=== PATIENT | female | born 1940 | race Caucasian/White ===

== ENCOUNTER 2017-12-12 12:16 | Emergency (ER) | payer BC, MEDICARE ==
[2017-12-12] MEDS ORDERED: SODIUM CHLORIDE 0.9% 500 ML IV STA (13:05)
[2017-12-12] MEDS ORDERED: METOCLOPRAMIDE 5 MG/ML 2 ML VIAL IVP STA (13:05)
--- NOTE | 2017-12-12 13:09 | ED ---
General Adult HPI - General Chief complaint: Headache Stated complaint: Headache Time Seen by Provider: 12/12/17 12:54 Source: patient, family, RN notes reviewed Mode of arrival: ambulatory Limitations: no limitations - History of Present Illness Initial comments: Patient is a pleasant 77-year-old female presenting to the emergency department complaining of headache. Onset of symptoms was a week ago. Patient did have a fall 3 weeks ago and struck the left side of her head. Patient did not have significant symptoms at that time and was symptom-free for approximately 2 weeks prior to this onset of headache. Onset was gradual over several days. Discomfort is mostly on the top and left side of the head. Patient does have some mild left-sided neck discomfort posteriorly as well. Patient feels dizzy. Patient does have some photophobia and blurred vision and nausea. Patient does have a history of headaches however has not had bad headaches in several years. No confusion or isolated area of weakness. - Related Data Home Medications Medication Instructions Recorded Confirmed HYDROcodone/APAP 5-325MG [[place] 1 tab PO DAILY 01/05/16 12/12/17 5-325] Metoprolol Succinate [Toprol XL] 50 mg PO DAILY 01/05/16 12/12/17 Spironolactone [Aldactone] 25 mg PO DAILY 01/05/16 12/12/17 Warfarin [Coumadin] 1.25 mg PO THSA 12/12/17 12/12/17 Warfarin [Coumadin] 2.5 mg PO SUMOTUWEFR 12/12/17 12/12/17 Allergies Allergy/AdvReac Type Severity Reaction Status Date / Time No Known Allergies Allergy Verified 12/12/17 13:21 Review of Systems ROS Statement: Those systems with pertinent positive or pertinent negative responses have been documented in the HPI. ROS Other: All systems not noted in ROS Statement are negative. Constitutional: Denies: fever Eyes: Denies: eye pain ENT: Denies: ear pain Respiratory: Denies: cough Cardiovascular: Denies: chest pain Endocrine: Denies: fatigue Gastrointestinal: Reports: nausea Genitourinary: Denies: dysuria Musculoskeletal: Denies: back pain Skin: Denies: rash Neurological: Reports: headache, abnormal gait. Denies: weakness, confusion Past Medical History Past Medical History: Hypertension Additional Past Medical History / Comment(s): chronic back pain History of Any Multi-Drug Resistant Organisms: None Reported Past Surgical History: Back Surgery, Section, Tubal Ligation Additional Past Surgical History / Comment(s): heart valve Past Psychological History: No Psychological Hx Reported Smoking Status: Never smoker Past Alcohol Use History: None Reported Past Drug Use History: None Reported General Exam Limitations: no limitations General appearance: alert, in no apparent distress Head exam: Present: atraumatic, normocephalic, other (No tenderness over the temporal artery) Eye exam: Present: normal appearance, PERRL, EOMI. Absent: nystagmus ENT exam: Present: normal oropharynx Neck exam: Present: tenderness (Mild left lateral paracervical muscle fullness and discomfort). Absent: meningismus Respiratory exam: Present: normal lung sounds bilaterally Cardiovascular Exam: Present: regular rate, normal rhythm GI/Abdominal exam: Present: soft. Absent: tenderness Extremities exam: Present: normal inspection. Absent: pedal edema, calf tenderness Neurological exam: Present: alert, CN II-XII intact. Absent: motor sensory deficit Expanded Neurological exam: Present: protecting the airway Speech: Present: fluid speech Cranial nerves: EOM's Intact: Normal, Facial Sensation: Normal Cerebellar function: Finger to Nose: Normal Sensory exam: Upper Extremity Light Touch: Normal, Lower Extremity Light Touch: Normal Motor strength exam: RUE: 5, LUE: 5, RLE: 5, LLE: 5 Eye Response: (4) open spontaneously Motor Response: (6) obeys commands Verbal Response: (5) oriented Psychiatric exam: Present: normal affect, normal mood Skin exam: Present: normal color Course Vital Signs 12/12/17 12/12/17 12:32 14:01 Temperature 98.1 F Pulse Rate 58 L 57 L Respiratory 16 18 Rate Blood Pressure 153/78 147/67 O2 Sat by Pulse 99 100 Oximetry - Reevaluation(s) Reevaluation #1: 12/12/17 14:56 Patient reevaluated and resting comfortably at bedside. Patient and family updated on results and seriousness of results. Vitamin K and FFP have been ordered. [facility] will be called for transfer. 12/12/17 14:57 Patient is on Coumadin for history of atrial fibrillation. 12/12/17 15:[address] Gandhi at [facility]. She will discussed the case with her neurosurgeon and likely accept. She will call back. 12/12/17 15:16 Dr. Gandhi did call back and will accept transfer. 12/12/17 15:17 Blood bank was called at 1505 and stated that FFP will be ready in less than 45 minutes. It is felt valuable for patient to receive FFP prior to transfer if this is able to be obtained short time period. Patient is stable at this time. Medical Decision Making - Lab Data Result diagrams: 12/12/17 12:56 12/12/17 12:56 Lab Results 12/12/17 12/12/17 12/12/17 Range/Units 12:56 12:56 12:56 WBC 9.3 (3.8-10.6) k/uL RBC 4.50 (3.80-5.40) m/uL Hgb 13.7 (11.4-16.0) gm/dL Hct 40.4 (34.0-46.0) % MCV 89.8 (80.0-100.0) fL MCH 30.4 (25.0-35.0) pg MCHC 33.9 (31.0-37.0) g/dL RDW 13.3 (11.5-15.5) % Plt Count 289 (150-450) k/uL Neutrophils % 68 % Lymphocytes % 20 % Monocytes % 8 % Eosinophils % 1 % Basophils % 0 % Neutrophils # 6.3 (1.3-7.7) k/uL Lymphocytes # 1.9 (1.0-4.8) k/uL Monocytes # 0.7 (0-1.0) k/uL Eosinophils # 0.1 (0-0.7) k/uL Basophils # 0.0 (0-0.2) k/uL ESR (0-20) mm/hr PT 33.4 H (9.0-12.0) sec INR 3.7 H (<1.2) APTT 41.8 H (22.0-30.0) sec Sodium 138 (137-145) mmol/L Potassium 4.4 (3.5-5.1) mmol/L Chloride 100 (98-107) mmol/L Carbon Dioxide 24 (22-30) mmol/L Anion Gap 14 mmol/L BUN 13 (7-17) mg/dL Creatinine 0.69 (0.52-1.04) mg/dL Est GFR (CKD-EPI)AfAm >90 (>60 ml/min/1.73 sqM) Est GFR (CKD-EPI)NonAf 86 (>60 ml/min/1.73 sqM) Glucose 94 (74-99) mg/dL Calcium 10.4 H (8.4-10.2) mg/dL Total Bilirubin 0.7 (0.2-1.3) mg/dL AST 28 (14-36) U/L ALT 48 (9-52) U/L Alkaline Phosphatase 71 (38-126) U/L Total Protein 7.2 (6.3-8.2) g/dL Albumin 4.7 (3.5-5.0) g/dL 12/12/17 Range/Units 13:28 WBC (3.8-10.6) k/uL RBC (3.80-5.40) m/uL Hgb (11.4-16.0) gm/dL Hct (34.0-46.0) % MCV (80.0-100.0) fL MCH (25.0-35.0) pg MCHC (31.0-37.0) g/dL RDW (11.5-15.5) % Plt Count (150-450) k/uL Neutrophils % % Lymphocytes % % Monocytes % % Eosinophils % % Basophils % % Neutrophils # (1.3-7.7) k/uL Lymphocytes # (1.0-4.8) k/uL Monocytes # (0-1.0) k/uL Eosinophils # (0-0.7) k/uL Basophils # (0-0.2) k/uL ESR 10 (0-20) mm/hr PT (9.0-12.0) sec INR (<1.2) APTT (22.0-30.0) sec Sodium (137-145) mmol/L Potassium (3.5-5.1) mmol/L Chloride (98-107) mmol/L Carbon Dioxide (22-30) mmol/L Anion Gap mmol/L BUN (7-17) mg/dL Creatinine (0.52-1.04) mg/dL Est GFR (CKD-EPI)AfAm (>60 ml/min/1.73 sqM) Est GFR (CKD-EPI)NonAf (>60 ml/min/1.73 sqM) Glucose (74-99) mg/dL Calcium (8.4-10.2) mg/dL Total Bilirubin (0.2-1.3) mg/dL AST (14-36) U/L ALT (9-52) U/L Alkaline Phosphatase (38-126) U/L Total Protein (6.3-8.2) g/dL Albumin (3.5-5.0) g/dL - Radiology Data Radiology results: report reviewed (Computed tomography scan of the brain shows mixed component of bilateral subdurals sowing acute and subacute and chronic hemorrhage. Right side 2 cm, left side 1.8 cm thickness. There is some mass effect. No herniation.) Critical Care Time Critical Care Time: Yes Total Critical Care Time: 34 Disposition Clinical Impression: Bilateral subdural hematomas Disposition: OTHER INSTITUTION NOT DEFINED Condition: Serious Is patient prescribed a controlled substance at d/c from ED?: No Referrals: Azar Salinas MD [Primary Care Provider] - 1-2 days Time of Disposition: 15:18 - Out of Hospital Transfer - Req. Specs Out of Hospital Transfer - Requested Specifics: Other Emergency Center
[2017-12-12 13:32] LABS: Basophils % (A) 0 %; Eosinophils # (A) 0.1 k/uL (0-0.7); Eosinophils % (A) 1 %; HCT 40.4 % (34.0-46.0); HGB 13.7 gm/dL (11.4-16.0); Lymphocytes # (A) 1.9 k/uL (1.0-4.8); Lymphocytes % (A) 20 %; MCH 30.4 pg (25.0-35.0); MCHC 33.9 g/dL (31.0-37.0); MCV 89.8 fL (80.0-100.0); Monocytes # (A) 0.7 k/uL (0-1.0); Monocytes % (A) 8 %; Neutrophils # (A) 6.3 k/uL (1.3-7.7); Neutrophils % (A) 68 %; Platelet Count 289 k/uL (150-450); RDW 13.3 % (11.5-15.5); WBC 9.3 k/uL (3.8-10.6)
[2017-12-12 13:43] LABS: INR 3.7 (<1.2); Partial Thromboplastin Time 41.8 sec (22.0-30.0); Prothrombin Time 33.4 sec (9.0-12.0)
[2017-12-12 13:54] LABS: ALT 48 U/L (9-52); AST 28 U/L (14-36); Albumin 4.7 g/dL (3.5-5.0); Alkaline Phosphatase 71 U/L (38-126); Anion Gap 14 mmol/L; Blood Urea Nitrogen 13 mg/dL (7-17); Calcium 10.4 mg/dL (8.4-10.2); Carbon Dioxide 24 mmol/L (22-30); Chloride 100 mmol/L (98-107); Glucose 94 mg/dL (74-99); Potassium 4.4 mmol/L (3.5-5.1); Sodium 138 mmol/L (137-145); Total Bilirubin 0.7 mg/dL (0.2-1.3); Total Protein 7.2 g/dL (6.3-8.2)
[2017-12-12 14:01] VITALS: RESP 18
[2017-12-12] MEDS ORDERED: PHYTONADIONE 10 MG in SODIUM CHLORIDE 0.9% 50 ML IVPB STA (14:47)
--- NOTE | 2017-12-12 14:49 | CT ---
EXAMINATION TYPE: CT brain wo con DATE OF EXAM: 12/12/2017 COMPARISON: NONE HISTORY: 77-year-old female complains of intractable headaches x1 week. Patient fell and hit head 3 weeks ago. TECHNIQUE: Examination was done in axial plane without intravenous contrast. Coronal and sagittal r econstructions performed. CT DLP: 852.1 mGycm Automated exposure control for dose reduction was used. FINDINGS: There are bilateral mixed density subdural hematomas with both acute and chronic components. On the r ight, this measures 2.0 cm thick with mass effect onto the underlying brain parenchyma. On the left, this measures 1.8 cm and while it extends more posteriorly, there is not as much underlying mass effe ct. No midline shift, effacement of basal subarachnoid cisterns, herniation, or hydrocephalus. No acute ischemic changes seen. Paranasal sinuses and mastoid air cells well pneumatized. Orbits and globes are intact. IMPRESSION: 1. Mixed density bilateral subdural hematomas measuring 2.0 cm thick on the right and 1.8 cm thick on the left. Local mass effect onto the underlying brain parenchyma but no midline shift or herniation. 2. The density indicates mixed acute, subacute, and chronic components to the extra-axial hemorrhage. Findings called to Dr. Miranda in the ER at 2:45 PM.
[2017-12-12] MEDS ORDERED: levETIRAcetam IV 750 MG in SODIUM CHLORIDE 0.9% 100 ML IVPB STA (15:51)
[2017-12-12 16:08] VITALS: BP 149/67; PULSE 59; TEMP 98.3
== END 2017-12-12 16:29 | disposition other institution (70) ==
LOC: EC 12:16
DX: S06.5X9A Traumatic subdural hemorrhage with loss of consciousness of unspecified duration, initial encounter (principal); I10 Essential (primary) hypertension; I48.91 Unspecified atrial fibrillation; R40.2142 Coma scale, eyes open, spontaneous, at arrival to emergency department; R40.2252 Coma scale, best verbal response, oriented, at arrival to emergency department; R40.2362 Coma scale, best motor response, obeys commands, at arrival to emergency department; Z79.891 Long term (current) use of opiate analgesic; Z79.01 Long term (current) use of anticoagulants; Z79.899 Other long term (current) drug therapy; W19.XXXA Unspecified fall, initial encounter
CPT/HCPCS: 36415; 86900; 86901; 80053; 85652; 85025; 85610; 85730; 86850; 70450; 99285; 96365; 96375; 96361; P9059; J3430; J2765

== ENCOUNTER → 2018-01-11 | Outpatient (CLI) | payer MEDICARE ==
--- NOTE | 2018-01-11 14:29 | CT ---
EXAMINATION TYPE: CT brain wo con DATE OF EXAM: 01/11/2018 COMPARISON: 12/12/2017 INDICATION: Follow up scan per patient DLP: 1144.7 mGycm, Automated exposure control for dose reduction was used. CONTRAST: None CT of the brain is performed utilizing 3 mm thick sections through the posterior fossa and 3 mm thick sections through the remaining calvarium. Study is performed within 24 hours of arrival to the hosp ital. No abnormal hyperdensity is present to suggest an acute intracranial hemorrhage. Subacute changes may be under the left temporal craniotomy site with a maximum depth of 0.3 cm. No significant mass effec t is evident on the adjacent brain. Bilateral craniotomies are evident. Previous subdural hematomas a re normal longer present. No mass lesion is evident. No acute infarcts are evident. There is some periventricular white matter hypodensity, likely on the basis of chronic white matter ischemic changes. Ventricles and sulci are appropriate for the patient age. Paranasal sinuses and mastoid air cells within the [id number]-ow-ydnd are clear. IMPRESSIONS: 1. 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 Postsurgical changes are present bilaterally. Some minimal residual subdural on the left craniotomy plate is not excluded but has a maximum depth of 0.3 cm.
== END | disposition home or self-care (01) ==
LOC: RADCTMAIN 13:07
PROVIDERS: ATTEND Neurological Surgery
DX: Z09 Encounter for follow-up examination after completed treatment for conditions other than malignant neoplasm (principal); Z87.820 Personal history of traumatic brain injury; Z98.890 Other specified postprocedural states
CPT/HCPCS: 70450

== ENCOUNTER → 2018-04-02 | Outpatient (CLI) | payer MEDICARE ==
--- NOTE | 2018-04-02 11:34 | CT ---
EXAMINATION TYPE: CT brain wo con DATE OF EXAM: 04/02/2018 HISTORY: Follow up CVA. CT DLP: 1552.4 mGycm. Automated Exposure Control for Dose Reduction was Utilized. TECHNIQUE: CT scan of the head is performed without contrast. COMPARISON: CT brain January 11, 2018. FINDINGS: There is redemonstration of 2 right-sided ozë holes and left-sided craniotomy plate. Subd ural curvilinear density on the left is less prominent felt to reflect resolving subacute on chronic subdural hemorrhage. There is no acute intracranial hemorrhage or midline shift identified. There is diffuse ventricular and sulcal prominence consistent with diffuse age-related cerebral atrophy. Ther e is low-attenuation in the periventricular white matter consistent with chronic small vessel ischemi c change. Some artifact degradation at skull base is noted. The globes are intact and the visualized sinuses are clear. Vascular calcification distal internal carotid arteries bilaterally is present. IMPRESSION: No acute intracranial hemorrhage or midline shift on current study. Postsurgical change s redemonstrated. There is mild to moderate diffuse age-related cerebral atrophy and mild chronic sma ll vessel ischemic change redemonstrated. Resolving left-sided subdural hemorrhage otherwise no signi ficant interval change.
== END | disposition home or self-care (01) ==
LOC: RADCTMAIN 09:06
PROVIDERS: ATTEND Internal Medicine Geriatric Medicine
DX: G31.1 Senile degeneration of brain, not elsewhere classified (principal); I62.9 Nontraumatic intracranial hemorrhage, unspecified; I67.82 Cerebral ischemia; I62.00 Nontraumatic subdural hemorrhage, unspecified
CPT/HCPCS: 70450

== ENCOUNTER 2018-06-20 09:50 | Emergency (ER) | payer MEDICARE ==
[2018-06-20 10:00] VITALS: RESP 16; TEMP 97.3
[2018-06-20] MEDS ORDERED: SODIUM CHLORIDE 0.9% 1,000 ML IV STA (10:10)
--- NOTE | 2018-06-20 10:30 | ED ---
Arrhythmia/Palpitations HPI - General Chief Complaint: Arrhythmia/Palpitations Stated Complaint: Chest Pressure, palpitations Time Seen by Provider: 06/20/18 10:01 Source: patient Mode of arrival: ambulatory Limitations: no limitations - History of Present Illness Initial Comments: 78-year-old female patient presents to the emergency department today for evaluation of irregular and racing heart beat. Patient states that she does have history of atrial fibrillation and does have an implanted cardioverter defibrillator. States that she has been having some lower chest pressure with this. Feels like her breathing is irregular. She states her physician did turn up the energy on this a couple of weeks ago. Patient states that she has not had any shocks. States that she has also had decreased appetite over the last 2 weeks. States she has lost 10 pounds. States she has to force herself to eat and drink. She denies any abdominal pain, nausea, or vomiting with this. She denies any hematuria, dysuria, urinary frequency, urinary urgency. She denies fevers or chills. Patient denies any recent rash, diarrhea, constipation, back pain, numbness, tingling, headache, visual changes, or any other complaints. - Related Data Home Medications Medication Instructions Recorded Confirmed HYDROcodone/APAP 5-325MG [[place] 0.5 tab PO HS 01/05/16 06/20/18 5-325] Metoprolol Succinate [Toprol XL] 50 mg PO HS 01/05/16 06/20/18 Spironolactone [Aldactone] 25 mg PO DAILY 01/05/16 06/20/18 ALPRAZolam [Xanax] 0.125 mg PO HS 06/20/18 06/20/18 Apixaban [Eliquis] 5 mg PO BID 06/20/18 06/20/18 Ergocalciferol (Vitamin D2) 50,000 unit PO Q14D 06/20/18 06/20/18 [Vitamin D2] Metoprolol Succinate (ER) [Toprol 100 mg PO DAILY 06/20/18 06/20/18 Xl] Previous Rx's Medication Instructions Recorded Megestrol [Megace] 100 mg PO QID #100 ml 06/20/18 Allergies Allergy/AdvReac Type Severity Reaction Status Date / Time Sulfa (Sulfonamide Allergy Nausea & Verified 06/20/18 10:22 Antibiotics) Vomiting morphine AdvReac Nausea & Verified 06/20/18 10:22 Vomiting Review of Systems ROS Statement: Those systems with pertinent positive or pertinent negative responses have been documented in the HPI. ROS Other: All systems not noted in ROS Statement are negative. Past Medical History Past Medical History: Atrial Fibrillation, Hypertension Additional Past Medical History / Comment(s): chronic back pain History of Any Multi-Drug Resistant Organisms: None Reported Past Surgical History: AICD, Back Surgery, Section, Heart Catheterization, Tubal Ligation Additional Past Surgical History / Comment(s): heart valve Past Psychological History: No Psychological Hx Reported Smoking Status: Never smoker Past Alcohol Use History: None Reported Past Drug Use History: None Reported General Exam Limitations: no limitations General appearance: alert, in no apparent distress, other (This is a well- developed, well-nourished elderly female patient in no acute distress. Vital signs upon presentation are temperature 97.3F, pulse 110, respirations 16, blood pressure 130/76, pulse ox 100% on room air.) Eye exam: Present: normal appearance, PERRL, EOMI. Absent: scleral icterus, conjunctival injection, periorbital swelling ENT exam: Present: normal exam, normal oropharynx, mucous membranes moist Respiratory exam: Present: normal lung sounds bilaterally. Absent: respiratory distress, wheezes, rales, rhonchi, stridor Cardiovascular Exam: Present: normal rhythm, tachycardia, irregular rhythm, normal heart sounds. Absent: regular rate, systolic murmur, diastolic murmur, rubs, gallop, clicks GI/Abdominal exam: Present: soft, normal bowel sounds. Absent: distended, tenderness, guarding, rebound, rigid Neurological exam: Present: alert, oriented X3, CN II-XII intact Psychiatric exam: Present: normal affect, normal mood Skin exam: Present: warm, dry, intact, normal color. Absent: rash Course Vital Signs 06/20/18 09:56 Temperature 97.3 F L Pulse Rate 110 H Respiratory 16 Rate Blood Pressure 130/76 O2 Sat by Pulse 100 Oximetry EKG Findings - EKG Comments: EKG Findings:: EKG obtained at 1019 shows a chill fibrillation with a ventricular rate of 88, QRS duration 82, QT 332, QTc 41. No evidence of ST elevation or depression. Medical Decision Making - Medical Decision Making 78 year-old female patient with past medical history significant for atrial fibrillation with an implanted cardioverter defibrillator presented to the emergency department today for evaluation of palpitations 1 week and a log of appetite for the last 2 weeks. Physical examination was relatively unremarkable , heart rhythm was irregular. EKG showed atrial fibrillation with rates in the 70s. Patient remained in the 80s to 90s throughout visit. Labs reviewed and are unremarkable. Chest x-ray showed no acute cardio pulmonary process. Did discuss findings and results with the patient. We will be able to discharge to follow-up with her screw eye assembler for recheck as soon as possible. Patient does report decreased appetite states that she has taken Megace in the past for similar symptoms and requests a prescription. I will prescribe this, but she is instructed to follow up with PCP for symptoms as soon as possible. Return parameters were discussed in detail. She verbalizes understanding and agrees with this plan. - Lab Data Result diagrams: 06/20/18 10:30 06/20/18 10:30 Lab Results 06/20/18 06/20/18 06/20/18 Range/Units 10:30 10:30 10:30 WBC 7.2 (3.8-10.6) k/uL RBC 4.91 (3.80-5.40) m/uL Hgb 14.6 (11.4-16.0) gm/dL Hct 43.6 (34.0-46.0) % MCV 88.8 (80.0-100.0) fL MCH 29.7 (25.0-35.0) pg MCHC 33.5 (31.0-37.0) g/dL RDW 13.2 (11.5-15.5) % Plt Count 284 (150-450) k/uL Neutrophils % 64 % Lymphocytes % 27 % Monocytes % 5 % Eosinophils % 1 % Basophils % 0 % Neutrophils # 4.6 (1.3-7.7) k/uL Lymphocytes # 1.9 (1.0-4.8) k/uL Monocytes # 0.4 (0-1.0) k/uL Eosinophils # 0.1 (0-0.7) k/uL Basophils # 0.0 (0-0.2) k/uL PT (9.0-12.0) sec INR (<1.2) APTT (22.0-30.0) sec Sodium 139 (137-145) mmol/L Potassium 4.8 (3.5-5.1) mmol/L Chloride 104 (98-107) mmol/L Carbon Dioxide 26 (22-30) mmol/L Anion Gap 9 mmol/L BUN 11 (7-17) mg/dL Creatinine 0.60 (0.52-1.04) mg/dL Est GFR (CKD-EPI)AfAm >90 (>60 ml/min/1.73 sqM) Est GFR (CKD-EPI)NonAf 89 (>60 ml/min/1.73 sqM) Glucose 99 (74-99) mg/dL Calcium 10.9 H (8.4-10.2) mg/dL Magnesium 2.2 (1.6-2.3) mg/dL Total Bilirubin 0.8 (0.2-1.3) mg/dL AST 19 (14-36) U/L ALT 25 (9-52) U/L Alkaline Phosphatase 66 (38-126) U/L Total Creatine Kinase 26 L (30-135) U/L CK-MB (CK-2) 0.8 (0.0-2.4) ng/mL CK-MB (CK-2) Rel Index 3.1 Troponin I <0.012 (0.000-0.034) ng/mL Total Protein 7.4 (6.3-8.2) g/dL Albumin 4.7 (3.5-5.0) g/dL Amylase 46 (30-110) U/L Lipase 69 (23-300) U/L 12/30/18 Range/Units 10:30 WBC (3.8-10.6) k/uL RBC (3.80-5.40) m/uL Hgb (11.4-16.0) gm/dL Hct (34.0-46.0) % MCV (80.0-100.0) fL MCH (25.0-35.0) pg MCHC (31.0-37.0) g/dL RDW (11.5-15.5) % Plt Count (150-450) k/uL Neutrophils % % Lymphocytes % % Monocytes % % Eosinophils % % Basophils % % Neutrophils # (1.3-7.7) k/uL Lymphocytes # (1.0-4.8) k/uL Monocytes # (0-1.0) k/uL Eosinophils # (0-0.7) k/uL Basophils # (0-0.2) k/uL PT 10.6 (9.0-12.0) sec INR 1.0 (<1.2) APTT 26.4 (22.0-30.0) sec Sodium (137-145) mmol/L Potassium (3.5-5.1) mmol/L Chloride (98-107) mmol/L Carbon Dioxide (22-30) mmol/L Anion Gap mmol/L BUN (7-17) mg/dL Creatinine (0.52-1.04) mg/dL Est GFR (CKD-EPI)AfAm (>60 ml/min/1.73 sqM) Est GFR (CKD-EPI)NonAf (>60 ml/min/1.73 sqM) Glucose (74-99) mg/dL Calcium (8.4-10.2) mg/dL Magnesium (1.6-2.3) mg/dL Total Bilirubin (0.2-1.3) mg/dL AST (14-36) U/L ALT (9-52) U/L Alkaline Phosphatase (38-126) U/L Total Creatine Kinase (30-135) U/L CK-MB (CK-2) (0.0-2.4) ng/mL CK-MB (CK-2) Rel Index Troponin I (0.000-0.034) ng/mL Total Protein (6.3-8.2) g/dL Albumin (3.5-5.0) g/dL Amylase (30-110) U/L Lipase (23-300) U/L - Radiology Data Radiology results: report reviewed, image reviewed Two-view x-ray of the chest is obtained. Report was reviewed in its entirety. Impression by Dr. Echeverria shows no evidence for acute pulmonary disease. Disposition Clinical Impression: Palpitations, Lack of appetite Disposition: HOME SELF-CARE Condition: Good Instructions: Heart Palpitations (ED) Additional Instructions: Take medications as directed. Follow up with your screw eye assembler and primary care physician for recheck in 1-2 days. Return immediately for any new, worsening, or concerning symptoms. Prescriptions: Megestrol [Megace] 100 mg PO QID #100 ml Is patient prescribed a controlled substance at d/c from ED?: No Referrals: Azar Salinas MD [Primary Care Provider] - 1-2 days Time of Disposition: 12:27
[2018-06-20 11:08] LABS: Basophils % (A) 0 %; Eosinophils # (A) 0.1 k/uL (0-0.7); Eosinophils % (A) 1 %; HCT 43.6 % (34.0-46.0); HGB 14.6 gm/dL (11.4-16.0); Lymphocytes # (A) 1.9 k/uL (1.0-4.8); Lymphocytes % (A) 27 %; MCH 29.7 pg (25.0-35.0); MCHC 33.5 g/dL (31.0-37.0); MCV 88.8 fL (80.0-100.0); Mean Platelet Volume 7.1; Monocytes # (A) 0.4 k/uL (0-1.0); Monocytes % (A) 5 %; Neutrophils # (A) 4.6 k/uL (1.3-7.7); Neutrophils % (A) 64 %; Platelet Count 284 k/uL (150-450); RBC 4.91 m/uL (3.80-5.40); RDW 13.2 % (11.5-15.5); WBC 7.2 k/uL (3.8-10.6)
[2018-06-20 11:17] LABS: ALT 25 U/L (9-52); AST 19 U/L (14-36); Albumin 4.7 g/dL (3.5-5.0); Alkaline Phosphatase 66 U/L (38-126); Amylase 46 U/L (30-110); Anion Gap 9 mmol/L; Blood Urea Nitrogen 11 mg/dL (7-17); Calcium 10.9 mg/dL (8.4-10.2); Carbon Dioxide 26 mmol/L (22-30); Chloride 104 mmol/L (98-107); Glucose 99 mg/dL (74-99); Lipase 69 U/L (23-300); Magnesium 2.2 mg/dL (1.6-2.3); Potassium 4.8 mmol/L (3.5-5.1); Sodium 139 mmol/L (137-145); Total Bilirubin 0.8 mg/dL (0.2-1.3); Total Protein 7.4 g/dL (6.3-8.2)
[2018-06-20 11:29] LABS: Creatine Kinase 26 U/L (30-135)
--- NOTE | 2018-06-20 11:34 | XR ---
EXAMINATION TYPE: XR chest 2V DATE OF EXAM: 06/20/2018 COMPARISON: 03/18/2011 HISTORY: Shortness of breath TECHNIQUE: Frontal and lateral views of the chest are obtained. FINDINGS: Scattered senescent parenchymal changes noted. Hyperinflation compatible with COPD. No evidence for infiltrate. No evidence for atelectasis. Heart size is stable. Mediastinal structures are stable and grossly unremarkable. No evidence for hilar prominence. Degenerative changes dorsal spine. IMPRESSION: 1. No evidence for acute pulmonary disease.
[2018-06-20 11:39] LABS: Partial Thromboplastin Time 26.4 sec (22.0-30.0); Prothrombin Time 10.6 sec (9.0-12.0)
[2018-06-20 11:43] LABS: Creatine Kinase MB 0.8 ng/mL (0.0-2.4); Troponin I <0.012 ng/mL (0.000-0.034)
[2018-06-20] MEDS ORDERED: HYDROcodone/APAP 5-325MG 1 EACH TAB PO STA (11:44)
[2018-06-20 12:46] LABS: Appearance,Urine Clear (Clear); Bilirubin,Urine Negative (Negative); Blood,Urine Negative (Negative); Color,Urine Light Yellow; Glucose,Urine (UA) Negative (Negative); Ketones,Urine Negative (Negative); Leukocyte Esterase,Urine Negative (Negative); Nitrite,Urine Negative (Negative); PH, Urine 6.5 (5.0-8.0); Protein,Urine Negative (Negative); Specific Gravity,Urine 1.003 (1.001-1.035); Urobilinogen,Urine <2.0 mg/dL (<2.0)
[2018-06-20 12:53] VITALS: BP 139/65; PULSE 87
== END 2018-06-20 12:40 | disposition home or self-care (01) ==
LOC: EC 09:50
DX: R00.2 Palpitations (principal); R63.0 Anorexia; Z68.20 Body mass index [BMI] 20.0-20.9, adult; R07.89 Other chest pain; I48.91 Unspecified atrial fibrillation; I10 Essential (primary) hypertension; M54.9 Dorsalgia, unspecified; G89.29 Other chronic pain; Z79.891 Long term (current) use of opiate analgesic; Z79.01 Long term (current) use of anticoagulants; Z79.899 Other long term (current) drug therapy; Z88.2 Allergy status to sulfonamides; Z88.5 Allergy status to narcotic agent; Z95.810 Presence of automatic (implantable) cardiac defibrillator; Z95.818 Presence of other cardiac implants and grafts
CPT/HCPCS: 36415; 71046; 80053; 81003; 82150; 82550; 82553; 83690; 83735; 84484; 85025; 85610; 85730; 93005; 96360; 99285

== ENCOUNTER → 2023-03-31 | Outpatient (CLI) | payer MEDICARE ==
[2023-03-31 10:32] LABS: HCT 40.6 % (34.0-46.0); HGB 13.2 gm/dL (11.4-16.0); MCH 30.1 pg (25.0-35.0); MCHC 32.4 g/dL (31.0-37.0); MCV 92.7 fL (80.0-100.0); Platelet Count 243 k/uL (150-450); RBC 4.38 m/uL (3.80-5.40); WBC 8.1 k/uL (3.8-10.6)
[2023-03-31 10:52] LABS: African American GFR (CKD) >90 (>60 ml/min/1.73 sqM); Anion Gap 10 mmol/L; Blood Urea Nitrogen 17 mg/dL (7-17); Carbon Dioxide 30 mmol/L (22-30); Chloride 100 mmol/L (98-107); Non-African American GFR(CKD) 89 (>60 ml/min/1.73 sqM); Potassium 4.3 mmol/L (3.5-5.1); Sodium 140 mmol/L (137-145)
== END ==
LOC: PAT 09:04
PROVIDERS: ATTEND Internal Medicine Clinical Cardiac Electrophysiology
DX: Z01.818 Encounter for other preprocedural examination (principal); Z88.2 Allergy status to sulfonamides; Z88.5 Allergy status to narcotic agent
CPT/HCPCS: 80051; 82565; 84520; 85027

== ENCOUNTER 2023-04-13 12:08 | Day surgery (SDC) | payer MEDICARE ==
[~2023-04-13 12:08] MED LIST: SODIUM CHLORIDE 0.9% 1,000 ML IV SCH; ceFAZolin 1 GM in SODIUM CHLORIDE 0.9% IRRIG BTL 250 ML IRRIGATION PRN; ceFAZolin 1,000 MG in SODIUM CHLORIDE 0.9% IRRIG BTL 250 ML IRRIGATION STA
[2023-04-13] MEDS ORDERED: SODIUM CHLORIDE 0.9% 1,000 ML IV ONE (12:40)
[2023-04-13] MEDS ORDERED: LIDOCAINE 1% INJ 10MG/ML (20 ML MDV) ONE ×2 (14:37→14:59)
[2023-04-13] MEDS ORDERED: LIDOCAINE 1% INJ 10MG/ML (20 ML MDV) SQ ONE (14:58)
[2023-04-13] MEDS ORDERED: ACETAMINOPHEN TAB 325 MG TAB PO PRN (16:14)
[2023-04-13] MEDS ORDERED: ACETAMINOPHEN IV (For NPO) 1,000 MG in EMPTY BAG 1 BAG IVPB ONE (16:14)
--- NOTE | 2023-04-13 16:14 | P.EPPROC ---
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 Trinh, pros and cons discussed, shared decision making + Procedure: Single chamber ICD generator change for device at [facility] Implanting physician: Dr. Page Result: Single chamber ICD generator change RV ICD lead: 1.4 V at 0.5 ms, R waves 11.7 mV and pacing impedance 700 ohms High-voltage impedance 77 ohms ICD generator [employer] single-chamber generator explanted Prisca [address] [id number] ICD generator implanted Procedure details: Patient was brought to the EP lab in a fasting state. Written informed consent was obtained prior to the procedure. Options, pros and cons, benefits and risks and complications discussed with patient in detail prior to the procedure (shared decision making document, from [facility]). Importance of continuing medical treatment emphasized. Alternatives discussed. Patient would like to proceed with ICD implant. The right pectoral area was prepped and draped as a protocol. IV antibiotics administered 1% lidocaine was used for local anesthesia. A 4 cm incision was made parallel to the deltopectoral groove, about 1.5 cm medial to it. The incision was carried down to the level of the pectoralis muscle and the subfascial pocket was made. Hemostasis was assured. Partial capsulectomy was performed. Leads.. On inspection lead appeared normal. ICD lead tested for threshold, sensing, impedances and tested with high output pacing for diaphragmatic stimulation Antibiotic pouch placed New generator placed Leads connected to the ICD generator. Wound closed in 3 layers and dressed per protocol ICD was interrogated and programmed. Appropriate pacing parameters, antitachycardia therapies with antitachycardia pacing cardioversion defibrillations programmed. Patient tolerated the procedure well without any acute complications. See scanned device report in EMR for lead details
[2023-04-13] MEDS: ONDANSETRON 4 MG/2 ML VIAL IVP PRN (17:05)
[2023-04-13] MEDS: APIXABAN 2.5 MG TABLET PO SCH (19:46)
[2023-04-13] MEDS: METOPROLOL TARTRATE 50 MG TAB PO SCH (19:46)
[2023-04-13] MEDS: HYDROcodone/APAP 5-325MG 1 EACH TAB PO PRN (21:57)
[2023-04-13 22:03] VITALS: RESP 16
[2023-04-14] MEDS: ONDANSETRON 4 MG/2 ML VIAL IVP PRN (01:37)
[2023-04-14 07:37] VITALS: BP 103/61; PULSE 86; TEMP 97.7
[2023-04-14] MEDS: METOPROLOL TARTRATE 50 MG TAB PO SCH (08:53)
[2023-04-14] MEDS: APIXABAN 2.5 MG TABLET PO SCH (08:53)
[2023-04-14] MEDS ORDERED: ATORVASTATIN 10 MG TAB PO SCH (09:00)
[2023-04-14] MEDS ORDERED: SPIRONOLACTONE 25 MG TAB PO SCH (09:00)
[2023-04-14] MEDS: HYDROcodone/APAP 5-325MG 1 EACH TAB PO PRN (09:39)
--- NOTE | 2023-04-14 12:20 | XR ---
EXAMINATION TYPE: XR chest 2V DATE OF EXAM: 04/14/2023 12:16 PM CLINICAL INDICATION:Female, 82 years old with history of s/p PPM generator change; PHH COMPARISON: Chest radiographs from 09/28/2021 TECHNIQUE: XR chest 2V Frontal and lateral views of the chest. FINDINGS: Lungs/Pleura: There is no evidence of pleural effusion, focal consolidation, or pneumothorax. Pulmonary vascularity: Unremarkable. Heart/mediastinum: Cardiomediastinal silhouette is enlarged and stable. Two lead cardiac conduction d evice overlying the right hemithorax with lead tips projecting over the right ventricle and right atr ium. Musculoskeletal: No acute osseous pathology. Midline sternotomy wires are noted.Scoliosis changes thr oughout the lumbar spine with hardware in place with hardware intact. IMPRESSION: 1. No acute cardiopulmonary disease/process. 2. Cardiomegaly. Post fixation changes spine which appear intact.
--- NOTE | 2023-04-14 12:58 | P.DS ---
Providers Attending physician: Juan J Page Primary care physician: [facility] Course: This is an 82-year-old female who underwent single-chamber ICD generator change with Dr. Page. POD #1. Patient is doing well postprocedure with no palpitations noted. She denies chest pain or pressure. She denies shortness of breath. Vital signs are stable. The patient was deemed stable for discharge home today from a cardiac standpoint. No changes to patient's medication regimen. She is to follow-up in the office with Dr. Trinh. Please see EMR for further hospital course details. 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 Moulton Device at [facility] Moderate to severe tricuspid regurgitation, status post mitral valve repair, valvular heart disease Frequent PVCs and underlying atrial fibrillation Nurse practitioner note has been reviewed by physician. Signing provider agrees with the documented findings, assessment, and plan of care. Plan - Discharge Summary Discharge Rx Participant: No New Discharge Prescriptions: Continue Spironolactone [Aldactone] 12.5 mg PO DAILY Metoprolol Succinate [Toprol XL] 50 mg PO BID HYDROcodone/APAP 5-325MG [[place] 5-325] 0.5 tab PO Q8HR PRN PRN Reason: Moderate Pain (Scale 4 To 6) Ergocalciferol (Vitamin D2) [Vitamin D2] 50,000 unit PO Q14D Apixaban [Eliquis] 2.5 mg PO BID Rosuvastatin [Crestor] 5 mg PO DAILY Multivit-Min/Iron/Folic/Lutein [Centrum Silver Women Tablet] 1 tab PO DAILY Discharge Medication List HYDROcodone/APAP 5-325MG [[place] 5-325] 0.5 tab PO Q8HR PRN 01/05/16 [History] Metoprolol Succinate [Toprol XL] 50 mg PO BID 01/05/16 [History] Spironolactone [Aldactone] 12.5 mg PO DAILY 01/05/16 [History] Apixaban [Eliquis] 2.5 mg PO BID 06/20/18 [History] Ergocalciferol (Vitamin D2) [Vitamin D2] 50,000 unit PO Q14D 06/20/18 [History] Multivit-Min/Iron/Folic/Lutein [Centrum Silver Women Tablet] 1 tab PO DAILY 04/09/23 [History] Rosuvastatin [Crestor] 5 mg PO DAILY 04/09/23 [History] Follow up Appointment(s)/Referral(s): Brent Trinh MD [STAFF PHYSICIAN] - 10/05/23 10:30 am (Device check 04/21/2023 @ 11:00am ) Activity/Diet/Wound Care/Special Instructions: PATIENT EDUCATION MATERIAL Instructions following a heart rhythm device implant. 1. Keep dressing DRY for 5 DAYS. You may cover the area with Saran or Cling Wrap, prior to a shower. 2. The dressing will be removed in the Device Clinic at [facility]. Absorbable sutures were used to close the wound. 3. Avoid raising the left arm above the shoulder level. 4 week restriction 4. Avoid arm movements, like backscratching, rubbing the head, or pulling on a cord. 4 weeks restriction 5. Gentle range of motion movements of the shoulder, closest to the incision should be performed to avoid a frozen shoulder. (Pendulum exercises of the shoulder) 6. The opposite arm may be used freely. 7. Avoid driving for 7 days. 8. Avoid activities such as golfing, swimming, weed whacking, lifting more than 10 pounds weight, bowling, gymnastics and weight training/lifting. (6 weeks restriction) 9. Activities such as wood chopping with an axe, pull-ups in the gymnasium, power lifting, arc-welding, being close to home induction cooktops will always be a problem. 10. Arm sling is only a reminder not to raise the arm above the head. You do not need to keep the arm completely immobilized. Your free to move the arm and use it and for normal activities. In case of any problems, please call [facility] [place], @ [phone], Attention: Device Clinic Device clinic follow-up in 5 days Follow-up with primary infectious disease technician in 2-3 months
== END 2023-04-14 13:23 | disposition home or self-care (01) ==
LOC: CATHEP 12:08 → 6NMEDSUR 16:02 → CATHEP 04-14 13:23
PROVIDERS: ATTEND Internal Medicine Clinical Cardiac Electrophysiology
DX: I51.7 Cardiomegaly (principal); M41.9 Scoliosis, unspecified; I48.91 Unspecified atrial fibrillation; E78.2 Mixed hyperlipidemia; Z79.01 Long term (current) use of anticoagulants; Z79.899 Other long term (current) drug therapy; Z88.5 Allergy status to narcotic agent; Z88.2 Allergy status to sulfonamides; Z88.8 Allergy status to other drugs, medicaments and biological substances; Z95.810 Presence of automatic (implantable) cardiac defibrillator; Z98.890 Other specified postprocedural states
CPT/HCPCS: 33262; 71046; C1722; J0690 ×2; J2405 ×2; J2001

== ENCOUNTER → 2023-11-30 | Outpatient (CLI) | payer MEDICARE ==
--- NOTE | 2023-12-01 10:24 | XR ---
EXAMINATION TYPE: XR Hip Bilateral and AP pelvis DATE OF EXAM: 11/30/2023 CLINICAL HISTORY: pain TECHNIQUE: Single view the pelvis is submitted. 2 views of bilateral hips are also submitted. FINDINGS: No evidence for fracture, dislocation or bony lesion. Joint spaces are well-preserved. S I joints appear symmetric. Postoperative changes lower lumbar spine. IMPRESSION: 1. No acute fracture or dislocation seen. ICD 10 NO FRACTURE, INITIAL EVALUATION
== END | disposition home or self-care (01) ==
LOC: RADXRMAIN 14:34
PROVIDERS: ATTEND Physician Assistant
DX: M25.552 Pain in left hip (principal)
CPT/HCPCS: 73521

== ENCOUNTER 2024-06-20 08:26 | Emergency (ER) | payer MEDICARE ==
--- NOTE | 2024-06-20 08:32 | ED ---
Dizziness HPI - General Stated Complaint: Dizziness Time Seen by Provider: 06/20/24 08:30 Source: RN notes reviewed, old records reviewed, Caregiver Mode of arrival: ambulatory Limitations: no limitations - History of Present Illness Initial Comments: This is an 84 female with room spinning dizziness vertiginous symptoms no prior history of vertigo history of atrial fibrillation on anticoagulation history of pacer patient states room spinning and off-balance MD Complaint: dizziness, difficulty walking -: hour(s) Timing: awoke with symptoms Description: sense of movement, "room spinning", off-balance, difficulty walking History of Same: No History of Trauma: No Severity: mild Improves With: remaining still Worsens With: nothing Associated Symptoms: denies other symptoms - Related Data Home Medications Medication Instructions Recorded Confirmed Metoprolol Succinate [Toprol XL] 50 mg PO BID 01/05/16 06/20/24 Spironolactone [Aldactone] 12.5 mg PO BID 01/05/16 06/20/24 Apixaban [Eliquis] 2.5 mg PO BID 06/20/18 06/20/24 Ergocalciferol [Vitamin D2 (1250 1,250 mcg PO Q14D 06/20/24 06/20/24 Mcg = [id number] Iu)] HYDROcodone/APAP 7.5-325MG [[place] 1 tab PO BID 06/20/24 06/20/24 7.5-325] Meclizine [Antivert] 6.25 mg PO DAILY@0630 06/20/24 06/20/24 Rosuvastatin Calcium [Crestor] 5 mg PO DAILY 06/20/24 06/20/24 Allergies Allergy/AdvReac Type Severity Reaction Status Date / Time morphine AdvReac Nausea & Verified 06/20/24 11:23 Vomiting Sulfa (Sulfonamide AdvReac Nausea & Verified 06/20/24 11:23 Antibiotics) Vomiting Review of Systems ROS Statement: Those systems with pertinent positive or pertinent negative responses have been documented in the HPI. ROS Other: All systems not noted in ROS Statement are negative. Past Medical History Past Medical History: Atrial Fibrillation, Hypertension Additional Past Medical History / Comment(s): chronic back pain, brain bleed History of Any Multi-Drug Resistant Organisms: None Reported Past Surgical History: AICD, Back Surgery, Section, Heart Catheterization, Tubal Ligation Additional Past Surgical History / Comment(s): heart valve Smoking Status: Never smoker General Exam - General Exam Comments Initial Comments: Nonfocal neurological deficits General appearance: alert, in no apparent distress Head exam: Present: atraumatic, normocephalic, normal inspection Eye exam: Present: normal appearance, PERRL, EOMI. Absent: scleral icterus, conjunctival injection, periorbital swelling ENT exam: Present: normal exam, mucous membranes moist Neck exam: Present: normal inspection. Absent: tenderness, meningismus, lymphadenopathy Respiratory exam: Present: normal lung sounds bilaterally. Absent: respiratory distress, wheezes, rales, rhonchi, stridor Cardiovascular Exam: Present: regular rate, normal rhythm, normal heart sounds. Absent: systolic murmur, diastolic murmur, rubs, gallop, clicks GI/Abdominal exam: Present: soft, normal bowel sounds. Absent: distended, tenderness, guarding, rebound, rigid Extremities exam: Present: normal inspection, full ROM, normal capillary refill. Absent: tenderness, pedal edema, joint swelling, calf tenderness Back exam: Present: normal inspection Neurological exam: Present: alert, oriented X3, CN II-XII intact Psychiatric exam: Present: normal affect, normal mood Skin exam: Present: warm, dry, intact, normal color. Absent: rash Course Vital Signs 06/20/24 08:27 Temperature 97.3 F L Pulse Rate 67 Respiratory 17 Rate Blood Pressure 150/66 O2 Sat by Pulse 100 Oximetry - Reevaluation(s) Reevaluation #1: 06/20/24 11:51 Medical records reviewed Reevaluation #2: 06/20/24 11:51 Patient is able to ambulate without ataxia Reevaluation #3: 06/20/24 11:51 Patient informed of results and questions answered Reevaluation #4: Was pt. sent in by a medical professional or institution (, PA, BUSINESS ANALYST, urgent care, hospital, or fdc...) When possible be specific @ -no Did you speak to anyone other than the patient for history (EMS, parent, family, police, friend...)? What history was obtained from this source @ -no Did you review nursing and triage notes (agree or disagree)? Why? @ -agree Are old charts reviewed (outside hosp., previous admission, EMS record, old EKG, old radiological studies, urgent care reports/EKG's, fdc records)? Report findings @ -yes Differential Diagnosis (chest pain, altered mental status, abdominal pain women, abdominal pain men, vaginal bleeding, weakness, fever, dyspnea, syncope, headache, dizziness, GI bleed, back pain, seizure, CVA, palpatations, mental health, musculoskeletal)? @ -prior EKG interpreted by me (3pts min.). @ -yes X-rays interpreted by me (1pt min.). @ -yes negative for acute disease CT interpreted by me (1pt min.). @ -no U/S interpreted by me (1pt. min.). @ -no What testing was considered but not performed or refused? (CT, X-rays, U/S, labs)? Why? @ -none What meds were considered but not given or refused? Why? @ -none Did you discuss the management of the patient with other professionals (professionals i.e. , PA, BUSINESS ANALYST, lab, RT, psych nurse, social services assistant, lift manager, teacher, evp and chief operating officer, case fitter)? Give summary @ -no Was smoking cessation discussed for >3mins.? @ -no Was critical care preformed (if so, how long)? @ -no Were there social determinants of health that impacted care today? How? ( Homelessness, low income, unemployed, alcoholism, drug addiction, transportation, low edu. Level, literacy, decrease access to med. care, detention, rehab)? @ -none Was there de-escalation of care discussed even if they declined (Discuss DNR or withdrawal of care, Hospice)? DNR status @ -no What co-morbidities impacted this encounter? (DM, HTN, Smoking, COPD, CAD, Cancer, CVA, ARF, Chemo, Hep., AIDS, mental health diagnosis, sleep apnea, morbid obesity)? @ -none Was patient admitted / discharged? Hospital course, mention meds given and route, prescriptions, significant lab abnormalities, going to OR and other pertinent info. @ - Undiagnosed new problem with uncertain prognosis? @ -no Drug Therapy requiring intensive monitoring for toxicity (Heparin, Nitro, Insulin, Cardizem)? @ -no Were any procedures done? @ -no Diagnosis/symptom? @ - Acute, or Chronic, or Acute on Chronic? @ -Acute Uncomplicated (without systemic symptoms) or Complicated (systemic symptoms)? @ -Complicated Side effects of treatment? @ -no Exacerbation, Progression, or Severe Exacerbation? @ -exacerbation Poses a threat to life or bodily function? How? (Chest pain, [place], [place], pneumonia, PE, COPD, DKA, ARF, appy, cholecystitis, CVA, Diverticulitis, Homicidal, Suicidal, threat to staff... and all critical care pts) @ -yes Reevaluation #5: Differential CVA Ischemic stroke, hemorrhagic stroke, brain tumor, atypical migraine, Wernicke's encephalopathy, seizure, multiple sclerosis, meningitis, encephalitis, hypoglycemia, Guillain-Gramajo, electrolytes disturbance, myasthenia gravis.... This is not meant to be an all-inclusive list EKG Findings - EKG Comments: EKG Findings:: EKG is A-fib 66 QRS 93 QTc 398 - EKG Results: EKG: interpreted by KAITLYNN Medical Decision Making - Medical Decision Making 84 female to ER for evaluation of CVA type symptoms vertiginous symptoms A-fib on Eliquis unable to take aspirin has defibrillator unable to get MRI, unable to get thrombolysis secondary to Eliquis, patient will be discharged home with resolution of symptoms able to ambulate - Lab Data Result diagrams: 06/20/24 08:37 06/20/24 08:37 Lab Results 06/20/24 06/20/24 06/20/24 Range/Units 08:37 08:37 08:37 WBC 9.9 (3.8-10.6) k/uL RBC 4.15 (3.80-5.40) m/uL Hgb 12.5 (11.4-16.0) gm/dL Hct 38.2 (34.0-46.0) % MCV 91.9 (80.0-100.0) fL MCH 30.1 (25.0-35.0) pg MCHC 32.7 (31.0-37.0) g/dL RDW 12.6 (11.5-15.5) % Plt Count 216 (150-450) k/uL MPV 7.2 Neutrophils % 79 % Lymphocytes % 13 % Monocytes % 6 % Eosinophils % 1 % Basophils % 0 % Neutrophils # 7.8 H (1.3-7.7) k/uL Lymphocytes # 1.3 (1.0-4.8) k/uL Monocytes # 0.6 (0-1.0) k/uL Eosinophils # 0.1 (0-0.7) k/uL Basophils # 0.0 (0-0.2) k/uL PT 10.9 (10.0-12.5) sec INR 1.0 (<1.2) APTT 25.5 (22.0-30.0) sec Sodium (137-145) mmol/L Potassium (3.5-5.1) mmol/L Chloride (98-107) mmol/L Carbon Dioxide (22-30) mmol/L Anion Gap mmol/L BUN (7-17) mg/dL Creatinine (0.52-1.04) mg/dL Est GFR (CKD-EPI)AfAm (>60 ml/min/1.73 sqM) Est GFR (CKD-EPI)NonAf (>60 ml/min/1.73 sqM) Glucose (74-99) mg/dL Plasma Lactic Acid Yg (0.7-2.0) mmol/L Calcium (8.4-10.2) mg/dL Phosphorus (2.5-4.5) mg/dL Magnesium (1.6-2.3) mg/dL Total Bilirubin (0.2-1.3) mg/dL AST (14-36) U/L ALT (4-34) U/L Alkaline Phosphatase (38-126) U/L Troponin I (0.000-0.034) ng/mL NT-Pro-B Natriuret Pep pg/mL Total Protein (6.3-8.2) g/dL Albumin (3.5-5.0) g/dL TSH (0.465-4.680) mIU/L Urine Color Colorless Urine Appearance Clear (Clear) Urine pH 5.5 (5.0-8.0) Ur Specific [place] 1.013 (1.001-1.035) Urine Protein Negative (Negative) Urine Glucose (UA) Negative (Negative) Urine Ketones Negative (Negative) Urine Blood Negative (Negative) Urine Nitrite Negative (Negative) Urine Bilirubin Negative (Negative) Urine Urobilinogen <2.0 (<2.0) mg/dL Ur Leukocyte Esterase Negative (Negative) 06/20/24 06/20/24 06/20/24 Range/Units 08:37 08:37 08:37 WBC (3.8-10.6) k/uL RBC (3.80-5.40) m/uL Hgb (11.4-16.0) gm/dL Hct (34.0-46.0) % MCV (80.0-100.0) fL MCH (25.0-35.0) pg MCHC (31.0-37.0) g/dL RDW (11.5-15.5) % Plt Count (150-450) k/uL MPV Neutrophils % % Lymphocytes % % Monocytes % % Eosinophils % % Basophils % % Neutrophils # (1.3-7.7) k/uL Lymphocytes # (1.0-4.8) k/uL Monocytes # (0-1.0) k/uL Eosinophils # (0-0.7) k/uL Basophils # (0-0.2) k/uL PT (10.0-12.5) sec INR (<1.2) APTT (22.0-30.0) sec Sodium 137 (137-145) mmol/L Potassium 4.0 (3.5-5.1) mmol/L Chloride 106 (98-107) mmol/L Carbon Dioxide 26 (22-30) mmol/L Anion Gap 5 mmol/L BUN 18 H (7-17) mg/dL Creatinine 0.52 (0.52-1.04) mg/dL Est GFR (CKD-EPI)AfAm >90 (>60 ml/min/1.73 sqM) Est GFR (CKD-EPI)NonAf 89 (>60 ml/min/1.73 sqM) Glucose 96 (74-99) mg/dL Plasma Lactic Acid Yg 1.1 (0.7-2.0) mmol/L Calcium 9.9 (8.4-10.2) mg/dL Phosphorus 2.9 (2.5-4.5) mg/dL Magnesium 2.0 (1.6-2.3) mg/dL Total Bilirubin 0.9 (0.2-1.3) mg/dL AST 23 (14-36) U/L ALT 23 (4-34) U/L Alkaline Phosphatase 72 (38-126) U/L Troponin I <0.012 (0.000-0.034) ng/mL NT-Pro-B Natriuret Pep 895 pg/mL Total Protein 6.2 L (6.3-8.2) g/dL Albumin 4.3 (3.5-5.0) g/dL TSH 2.060 (0.465-4.680) mIU/L Urine Color Urine Appearance (Clear) Urine pH (5.0-8.0) Ur Specific [place] (1.001-1.035) Urine Protein (Negative) Urine Glucose (UA) (Negative) Urine Ketones (Negative) Urine Blood (Negative) Urine Nitrite (Negative) Urine Bilirubin (Negative) Urine Urobilinogen (<2.0) mg/dL Ur Leukocyte Esterase (Negative) - EKG Data -: EKG Interpreted by [place] - Radiology Data Radiology results: report reviewed (CT brain CTA head neck negative for acute disease), image reviewed Disposition Clinical Impression: Dehydration, Dizziness, TIA (transient ischemic attack), Vertigo Disposition: HOME SELF-CARE Instructions (If sedation given, give patient instructions): Dizziness (ED), Vertigo (ED) Is patient prescribed a controlled substance at d/c from ED?: No Referrals: Azar Salinas MD [Primary Care Provider] - 1-2 days Joanne Joaquin MD [Medical Doctor] - 1-2 days Time of Disposition: 11:50
[2024-06-20] MEDS: SODIUM CHLORIDE 0.9% 1,000 ML IV STA (09:00)
[2024-06-20 09:14] LABS: Basophils % (A) 0 %; Eosinophils # (A) 0.1 k/uL (0-0.7); Eosinophils % (A) 1 %; HCT 38.2 % (34.0-46.0); HGB 12.5 gm/dL (11.4-16.0); Lymphocytes # (A) 1.3 k/uL (1.0-4.8); Lymphocytes % (A) 13 %; MCH 30.1 pg (25.0-35.0); MCHC 32.7 g/dL (31.0-37.0); MCV 91.9 fL (80.0-100.0); Mean Platelet Volume 7.2; Monocytes # (A) 0.6 k/uL (0-1.0); Monocytes % (A) 6 %; Neutrophils # (A) 7.8 k/uL (1.3-7.7); Neutrophils % (A) 79 %; Platelet Count 216 k/uL (150-450); RBC 4.15 m/uL (3.80-5.40); RDW 12.6 % (11.5-15.5); WBC 9.9 k/uL (3.8-10.6)
[2024-06-20 09:28] LABS: ALT 23 U/L (4-34); AST 23 U/L (14-36); African American GFR (CKD) >90 (>60 ml/min/1.73 sqM); Albumin 4.3 g/dL (3.5-5.0); Alkaline Phosphatase 72 U/L (38-126); Anion Gap 5 mmol/L; Blood Urea Nitrogen 18 mg/dL (7-17); Calcium 9.9 mg/dL (8.4-10.2); Carbon Dioxide 26 mmol/L (22-30); Chloride 106 mmol/L (98-107); Glucose 96 mg/dL (74-99); Non-African American GFR(CKD) 89 (>60 ml/min/1.73 sqM); Phosphorus 2.9 mg/dL (2.5-4.5); Sodium 137 mmol/L (137-145); Total Bilirubin 0.9 mg/dL (0.2-1.3); Total Protein 6.2 g/dL (6.3-8.2)
[2024-06-20 09:34] LABS: NT-Pro-B-Type Natriuretic Pept 895 pg/mL
[2024-06-20 09:35] LABS: Partial Thromboplastin Time 25.5 sec (22.0-30.0); Prothrombin Time 10.9 sec (10.0-12.5)
[2024-06-20] MEDS: SODIUM CHLORIDE 0.9% 500 ML 500 ML IV STA (10:12)
[2024-06-20] MEDS: ONDANSETRON 4 MG/2 ML VIAL IVP STA (10:13)
--- NOTE | 2024-06-20 10:37 | CT ---
EXAMINATION TYPE: CT brain wo con CT DLP: 1000 mGycm, Automated exposure control for dose reduction was used. DATE OF EXAM: 06/20/2024 10:29 AM COMPARISON: Multiple CT brain with most recent 04/02/2018 CLINICAL INDICATION:Female, 84 years old with history of vertigo, dizzy TECHNIQUE: Brain: Multiple axial CT images of the brain were obtained without IV contrast. . Coronal and sagitta l reformats reviewed. FINDINGS: Brain: Extra-axial spaces: No abnormal extra-axial fluid collections. Ventricular system: Within normal limits Cerebral parenchyma: Cerebral atrophy. No acute intraparenchymal hemorrhage or mass effect. The colvin -white junction is well differentiated. Scattered hypoattenuating areas are seen within the periventr icular white matter. Cerebellum: Unremarkable. Mass effect: No evidence of midline shift. Intracranial vasculature: Atherosclerotic calcifications of the intracranial vessels. Soft tissues: Normal. Calvarium/osseous structures: No depressed skull fracture. Redemonstration of 2 right-sided zoë hole s and left-sided craniotomy plate. Paranasal sinuses and mastoid air cells: Clear Visualized orbits: Orbital contents are intact. IMPRESSION: 1. No acute intracranial process. 2. Nonspecific white matter changes, likely secondary to chronic small vessel ischemic disease. 3. Postsurgical changes redemonstrated. [facility], , 06/20/2024 10:35 AM
[2024-06-20 10:50] LABS: Appearance,Urine Clear (Clear); Bilirubin,Urine Negative (Negative); Blood,Urine Negative (Negative); Color,Urine Colorless; Glucose,Urine (UA) Negative (Negative); Ketones,Urine Negative (Negative); Leukocyte Esterase,Urine Negative (Negative); Nitrite,Urine Negative (Negative); PH, Urine 5.5 (5.0-8.0); Protein,Urine Negative (Negative); Specific Gravity,Urine 1.013 (1.001-1.035); Urobilinogen,Urine <2.0 mg/dL (<2.0)
--- NOTE | 2024-06-20 10:54 | CT ---
EXAMINATION TYPE: CT angio head neck CT DLP: 532 mGycm, Automated exposure control for dose reduction was used. DATE OF EXAM: 06/20/2024 10:38 AM COMPARISON: CT brain 06/20/2024. CLINICAL INDICATION:Female, 84 years old with history of vertigo; PHH, dizzy TECHNIQUE: Axially acquired helical CT angiogram of the head and neck was obtained with contrast util izing 75 cc of Isovue-370 administered intravenously. Axial images are supplemented with 3D reconstru ctions which were post-processed at an independent workstation. NASCET criteria used. FINDINGS: CTA HEAD: No evidence of acute intracranial hemorrhage, mass effect, or midline shift. The ventricles, sulci, a nd cisterns are unremarkable. The visualized portions of the internal carotid arteries, middle cerebral arteries, anterior cerebral arteries, and posterior cerebral arteries are patent. The basilar artery is patent. CTA NECK: Right Carotid System: The common carotid artery and external carotid artery are patent. The carotid bifurcation demonstrate s no evidence of hemodynamically significant stenosis. The remaining portions of the internal carotid artery demonstrate normal size without significant narrowing. Left Carotid System: The common carotid artery and external carotid artery are patent. The carotid bifurcation demonstrate s no evidence of hemodynamically significant stenosis. The remaining portions of the internal carotid artery demonstrate normal size without significant narrowing. Dominant patent right vertebral artery. Diminutive left vertebral artery with nonvisualization of the V4 segment. The visualized portions origins of the great vessels are patent. No visualized evidence of hemodynami elly significant stenosis. Possible right-sided aortic arch however the arch is only partially visua lized. IMPRESSION: 1. No evidence of dissection of the cervical internal carotid arteries or any evidence of significant stenosis at the carotid bifurcations. 2. No evidence of high-grade stenosis or intracranial aneurysm. 3. Patent right vertebral artery with diminutive left vertebral artery. There is non visualization of the V4 segment of the left vertebral artery which may be due to occlusion versus hypoplasia. [facility], , 06/20/2024 10:51 AM
[2024-06-20 12:02] VITALS: BP 153/51; PULSE 68; RESP 15; TEMP 97.6
== END 2024-06-20 12:08 | disposition home or self-care (01) ==
LOC: EC 08:26
DX: E86.0 Dehydration (principal); R42 Dizziness and giddiness; G45.9 Transient cerebral ischemic attack, unspecified; Z88.2 Allergy status to sulfonamides; Z88.5 Allergy status to narcotic agent
CPT/HCPCS: 36415; 93005; 83880; 80053; 83605; 83735; 84100; 84443; 84484; 85025; 85610; 85730; 81003; 70496; 70450; 70498; 99284; 96360; 96361; Q9967